=== PATIENT | female | born 1965 | race Caucasian/White ===

== ENCOUNTER → 2016-07-22 | Outpatient (CLI) | payer BC ==
[~2016-07-22] MED LIST: ERGO500014 PO; IBUP-1542 PO; LINA145C PO; LORA10TA3 PO; LOSA100T7 PO; MELO-109 PO
[2016-07-22 15:13] LABS: BASOPHILS % 0.5 % (0.0-2.0); EOSINOPHILS % 0.6 % (0.0-7.0); HEMATOCRIT 38.1 % (37.0-47.0); HEMOGLOBIN 12.5 g/dl (12.0-16.0); LYMPHOCYTES # 2.1 10^3/ul (0.8-2.9); LYMPHOCYTES % 25.4 % (15.0-51.0); MEAN CORPUSCULAR HEMOGLOBIN 29.1 pg (29.0-33.0); MEAN CORPUSCULAR HGB CONC 32.8 g/dl (32.0-37.0); MEAN CORPUSCULAR VOLUME 88.9 fl (82.0-101.0); MEAN PLATELET VOLUME 8.8 fl (7.4-10.4); MONOCYTE # 0.6 10^3/ul (0.3-0.9); MONOCYTES % 7.1 % (0.0-11.0); NEUTROPHIL # 5.4 10^3/ul (1.6-7.5); NEUTROPHILS % 66.4 % (39.0-77.0); PLATELET COUNT 274 10^3/UL (140-440); RED BLOOD COUNT 4.28 10^6/ul (4.20-5.40); RED CELL DISTRIBUTION WIDTH 13.8 % (11.5-14.5); UNCORRECTED WBC 8.2 10^3/ul (4.8-10.8); WHITE BLOOD COUNT 8.2 10^3/ul (4.8-10.8)
[2016-07-22 15:17] LABS: ALBUMIN 4.3 g/dl (3.3-4.9); POTASSIUM 4.4 mmol/L (3.5-5.1)
[2016-07-22 15:19] LABS: CREATININE 0.68 mg/dl (0.44-1.00)
[2016-07-22 15:20] LABS: ALBUMIN/GLOBULIN RATIO 1.38; BILIRUBIN,INDIRECT 0.6 mg/dl (0-1.1); BILIRUBIN,TOTAL 0.6 mg/dl (0.2-1.3); TOTAL PROTEIN 7.4 g/dl (6.1-8.1)
[2016-07-22 15:21] LABS: CHOL/HDL RATIO 3.8 RATIO
[2016-07-22 15:22] LABS: CONDITION 1
[2016-07-22 17:23] LABS: ADD UMIC YES; URINE BILIRUBIN (Dip) NEGATIVE (NEGATIVE); URINE BLOOD (Dip) TRACE (NEGATIVE); URINE COLOR YELLOW (YELLOW); URINE GLUCOSE (Dip) NEGATIVE (NEGATIVE); URINE KETONES (Dip) NEGATIVE (NEGATIVE); URINE LEUKOCYTE ESTERASE (Dip) NEGATIVE (NEGATIVE); URINE NITRITE (Dip) NEGATIVE (NEGATIVE); URINE TOTAL PROTEIN (Dip) NEGATIVE (NEGATIVE); URINE UROBILINOGEN (Dip) 0.2 E.U./dL (0.1-1.0)
[2016-07-22 18:18] LABS: SQUAMOUS EPITHELIAL CELL,UR RARE
== END | disposition home or self-care (01) ==
LOC: LAB 14:33
PROVIDERS: ATTEND Internal Medicine
DX: E78.5 Hyperlipidemia, unspecified (principal); N39.0 Urinary tract infection, site not specified
CPT/HCPCS: 80053; 80061; 81001; 81003; 85025; 87086

== ENCOUNTER → 2016-08-03 | Outpatient (CLI) | payer BC ==
[~2016-08-03] MED LIST changes: +IOHEXOL 300MG/ML 150 ML BTL ONE; +SOD CHLORIDE 0.9% 100 ML ONE
--- NOTE | 2016-08-03 10:12 | RADRPT ---
PROCEDURE: CT urogram abdomen and pelvis. CLINICAL INDICATION: Hematuria TECHNIQUE: CT urogram was performed on a multi-slice CT scanner with contiguous high-resolution thin-slice 3.8 mm overlapping pre-contrast axial images obtained through the kidneys, ureters and bladder. Addition al high-resolution thin-slice post-contrast images through the kidneys were performed. Delete the Ad ditional high resolution thin slice delay images were obtained through the kidneys, ureters, and alexandra dder. Coronal and sagittal reconstructions of all sequences were obtained. DLP 2201.6 mGycm. CTDIvol 15.3, 15.1, and 15.4 mGy COMPARISON: 03/27/2015 FINDINGS: There are no renal or ureteral calculi present bilaterally. There is no evidence of hydronephrosis o r perinephric stranding. There is no enhancing renal mass. Delayed images demonstrate no filling def ects in the renal collecting systems, ureters, and bladder. The lung bases are clear. There is normal density of the liver with no enhancing lesion or biliary d uctal dilatation. A nonenhancing cyst is seen in the left hepatic lobe. The gallbladder is unremark able without inflammation and the portal vein is intact. The spleen is unremarkable without enlargement. The adrenal glands are within normal limits bilater ally without focal lesion or inflammation. The pancreas is unremarkable with no evidence of focal le rossy or inflammation. There is mild fluid distension of portions of the small bowel with fluid and stool distension of the colon without obstruction. The appendix is not seen. There is mild wall thickening of the rectum with adjacent fat stranding that is indeterminate. There is no free air. There is trace free fluid . There are no enlarged lymph nodes by CT measurement criteria. Aortic atherosclerosis is present. Multilevel degenerative changes are seen throughout the lumbar spine with no acute osseous abnormal ity. There are surgical changes of prior ventral hernia repair. The uterus and adnexal structures are grossly unremarkable. IMPRESSION: Normal appearance of the kidneys, ureters, and bladder. Atherosclerotic disease. Air and fluid distension of the small bowel with fluid and stool distension of the colon is present that could represent an ileus. Mild possible inflammatory changes of the distal colon are present t hat could represent an area of colitis. RPTAT: AA .Jacob Morton MD, MD Date Time Electronically viewed and signed by .Jacob Morton MD, MD on 08/03/2016 10:11 .J/
== END | disposition home or self-care (01) ==
LOC: C/S 08:34
PROVIDERS: ATTEND Internal Medicine
DX: N20.0 Calculus of kidney (principal); R31.9 Hematuria, unspecified
CPT/HCPCS: 74178; Q9967

== ENCOUNTER → 2017-02-17 | Outpatient (CLI) | payer BC ==
[~2017-02-17] MED LIST changes: +CEPH500C PO; +IBUP800T25 PO; -IOHEXOL 300MG/ML 150 ML BTL ONE; +MECL25TA2; +OPTI5OP6 RIGHT EYE; +ROSU5TAB5 PO; +SENN-53 PO; +SENN-59; -SOD CHLORIDE 0.9% 100 ML ONE
[2017-02-17 16:28] LABS: BASOPHILS % 0.6 % (0.0-2.0); EOSINOPHILS # 0.1 10^3/ul (0.0-0.5); EOSINOPHILS % 0.8 % (0.0-7.0); HEMATOCRIT 37.9 % (37.0-47.0); HEMOGLOBIN 12.4 g/dl (12.0-16.0); LYMPHOCYTES # 2.1 10^3/ul (0.8-2.9); LYMPHOCYTES % 31.2 % (15.0-51.0); MEAN CORPUSCULAR HGB CONC 32.7 g/dl (32.0-37.0); MEAN CORPUSCULAR VOLUME 91.5 fl (82.0-101.0); MEAN PLATELET VOLUME 11.1 fl (7.4-10.4); MONOCYTE # 0.6 10^3/ul (0.3-0.9); MONOCYTES % 8.4 % (0.0-11.0); NEUTROPHILS % 58.8 % (39.0-77.0); PLATELET COUNT 282 10^3/UL (140-415); RED BLOOD COUNT 4.14 10^6/ul (4.20-5.40); RED CELL DISTRIBUTION WIDTH 13.2 % (11.5-14.5); WHITE BLOOD COUNT 6.6 10^3/ul (4.8-10.8)
[2017-02-17 16:50] LABS: BILIRUBIN,INDIRECT 0.3 mg/dl (0-1.1); BILIRUBIN,TOTAL 0.3 mg/dl (0.2-1.3); CALCIUM 9.3 mg/dl (8.4-10.2); CREATININE 0.65 mg/dl (0.44-1.00)
[2017-02-17 17:20] LABS: THYROID STIMULATING HORMONE 1.92 MIU/L (0.465-4.680)
[2017-02-17 17:27] LABS: ALBUMIN/GLOBULIN RATIO 1.57
[2017-02-17 17:29] LABS: ALBUMIN 4.4 g/dl (3.3-4.9); TOTAL PROTEIN 7.2 g/dl (6.1-8.1)
== END | disposition home or self-care (01) ==
LOC: LAB 12:12
PROVIDERS: ATTEND Internal Medicine
DX: E78.5 Hyperlipidemia, unspecified (principal); E03.9 Hypothyroidism, unspecified
CPT/HCPCS: 80053; 80061; 84436; 84443; 85025

== ENCOUNTER → 2017-07-28 | Outpatient (CLI) | END | disposition home or self-care (01) ==

== ENCOUNTER 2017-08-04 11:49 | Emergency (ER) | END 2017-08-04 14:57 | disposition home or self-care (01) ==

== ENCOUNTER → 2017-09-07 | Outpatient (CLI) | END | disposition home or self-care (01) ==

== ENCOUNTER → 2018-03-16 | Outpatient (CLI) | END | disposition home or self-care (01) ==

== ENCOUNTER 2018-08-16 08:47 | Emergency (ER) | payer BC ==
[~2018-08-16] VITALS: Ht 162.6 cm; Wt 72.7 kg
[~2018-08-16 08:47] MED LIST changes: +ACET325T33 PO; -CEPH500C PO; -IBUP800T25 PO; +LOSA100T15 PO; -LOSA100T7 PO; -MECL25TA2; -MELO-109 PO; +MELO7.5T38 PO; -OPTI5OP6 RIGHT EYE; +OSEL75CA23 PO; +PROM5SYR2 PO; -ROSU5TAB5 PO; -SENN-53 PO; -SENN-59
[2018-08-16 08:51] VITALS: Ht 162.6 cm; Wt 72.7 kg
[2018-08-16] MEDS ORDERED: KETOROLAC 30 MG INJ IM STA (08:52)
--- NOTE | 2018-08-16 09:30 | ERD ---
ER Documentation Chief Complaint Chief Complaint pressure like chest pain since last night, non radiating HPI 52-year-old generally healthy woman presents with 2 days of sharp constant substernal chest pain that began yesterday. The pain is nonexertional nonradiating and she has had a similar episode in the past which resolved spo ntaneously. She denies cough, no fevers or chills, no calf or leg swelling. ROS All systems reviewed and are negative except as per history of present illness. Medications Home Meds Active Scripts Naproxen* (Naprosyn*) 500 Mg Tablet, 500 MG PO BID PRN for PAIN AND/OR INFLAMMATION, #30 TAB Prov:OSWALDO ARENAS MD 08/16/18 Loratadine* (Loratadine*) 10 Mg Tablet, 10 MG PO DAILY, #20 TAB Prov:JENNIFER RUIZ DO 09/21/15 Reported Medications Ergocalciferol* (Drisdol* (Vitamin D2)) 50,000 Unit Capsule, [address] UNIT PO WEDNESDAY, CAP 03/10/16 Losartan Potassium* (Losartan Potassium*) 100 Mg Tablet, 100 MG PO DAILY PRN for ELEVATED BLOOD PRESSURE, TAB 03/10/16 Linaclotide (LINZESS) 145 Mcg Capsule, 145 MCG PO DAILY 05/09/14 Discontinued Reported Medications Meloxicam* (Meloxicam*) 7.5 Mg Tablet, 7.5 MG PO DAILY PRN for MODERATE PAIN LEVEL 4-6, #30 TAB 08/29/15 Discontinued Scripts Promethazine HCl/Codeine (Prometh-Codein 6.25-10 mg/5 ml) 5 Ml Syrup, 10 ML PO Q6, #120 Prov:ÁSNCHEZ SHANNON MD 08/04/17 Acetaminophen* (Tylenol*) 325 Mg Tablet, 2 TAB PO Q4H WHILE AWAKE PRN for PAIN AND OR ELEVATED TEMP, #20 TAB Prov:SÁNCHEZ SHANNON MD 08/04/17 Ibuprofen* (Motrin*) 600 Mg Tab, 600 MG PO Q6H PRN for PAIN AND OR ELEVATED TEMP, #30 TAB Prov:SÁNCHEZ SHANNON MD 08/04/17 Oseltamivir Phosphate* (Tamiflu*) 75 Mg Capsule, 75 MG PO BID for 5 Days, CAP Prov:SÁNCHEZ SHANNON MD 08/04/17 Ibuprofen* (Ibuprofen*) 600 Mg Tablet, 600 MG PO Q8 for PAIN, #30 TAB Prov:OSWALDO ARENAS MD 03/10/16 Allergies Allergies: Coded Allergies: No Known Drug Allergies (Verified Allergy, Mild, 08/16/18) PMhx/Soc Hypertension History of Surgery: Yes (hernia repair) Anesthesia Reaction: No Hx Neurological Disorder: No Hx Respiratory Disorders: No Hx Cardiac Disorders: Yes (HTN) Hx Psychiatric Problems: No Hx Miscellaneous Medical Probl: No (CONSTIPATION) Hx Alcohol Use: No Hx Substance Use: No Hx Tobacco Use: No Physical Exam Vitals Vital Signs Date Temp Pulse Resp B/P (MAP) Pulse Ox O2 O2 Flow FiO2 Time Delivery Rate 08/16/18 98.2 73 19 110/76 100 Room Air 10:47 (87) 08/16/18 97.8 71 18 134/75 100 08:51 (94) Physical Exam Const: No acute distress, afebrile Head: Atraumatic Eyes: Normal Conjunctiva ENT: Normal External Ears, Nose and Mouth. Neck: Full range of motion. No meningismus. Resp: Clear to auscultation bilaterally Cardio: Regular rate and rhythm, no murmurs Abd: Soft, non tender, non distended. Normal bowel sounds Skin: No petechiae or rashes Back: No midline or flank tenderness Ext: No cyanosis, or edema Neur: Awake and alert x3, no focal deficits or facial asymmetry Psych: Normal Mood and Affect Result Diagram: 08/16/1890008/16/18900 Results 24 hrs Laboratory Tests Test 08/16/18 09:01 White Blood Count 5.6 10^3/ul Red Blood Count 4.14 10^6/ul Hemoglobin 12.1 g/dl Hematocrit 38.4 % Mean Corpuscular Volume 92.8 fl Mean Corpuscular Hemoglobin 29.2 pg Mean Corpuscular Hemoglobin Concent 31.5 g/dl Red Cell Distribution Width 13.1 % Platelet Count 247 10^3/UL Mean Platelet Volume 10.2 fl Immature Granulocytes % 0.200 % Neutrophils % 61.0 % Lymphocytes % 28.4 % Monocytes % 9.2 % Eosinophils % 0.7 % Basophils % 0.5 % Nucleated Red Blood Cells % 0.0 /100WBC Immature Granulocytes # 0.010 10^3/ul Neutrophils # 3.4 10^3/ul Lymphocytes # 1.6 10^3/ul Monocytes # 0.5 10^3/ul Eosinophils # 0.0 10^3/ul Basophils # 0.0 10^3/ul Nucleated Red Blood Cells # 0.0 10^3/ul Sodium Level 142 mmol/L Potassium Level 4.0 mmol/L Chloride Level 100 mmol/L Carbon Dioxide Level 29 mmol/L Anion Gap 13 Blood Urea Nitrogen 17 mg/dl Creatinine 0.62 mg/dl Est Glomerular Filtrat Rate mL/min > 60 mL/min Glucose Level 112 mg/dl Calcium Level 9.2 mg/dl Total Bilirubin 0.5 mg/dl Direct Bilirubin 0.00 mg/dl Indirect Bilirubin 0.5 mg/dl Aspartate Amino Transf (AST/SGOT) 22 IU/L Alanine Aminotransferase (ALT/SGPT) 33 IU/L Alkaline Phosphatase 53 IU/L Troponin I < 0.012 ng/ml Total Protein 7.3 g/dl Albumin 4.3 g/dl Globulin 3.00 g/dl Albumin/Globulin Ratio 1.43 Lipase 161 U/L Current Medications Medications Dose Sig/Nelson Start Time Status Last (Trade) Ordered Route PRN Stop Time Admin Dose Reason Admin Ketorolac 30 mg ONCE STAT 08/16/18 DC 08/16/18 Tromethamine IM 08:52 09:07 (Toradol) 08/16/18 08:53 Procedures/MDM IV line was established patient was placed on svp of digital rhythm strip revealed a sinus rhythm at about 70 bpm with upright P and T waves. Patient was afebrile Chest X-ray 1V Interpreted by me: Soft Tissue: No acute abnormalities Bones: No acute abnormalities Mediastinum/Cardiac Silhouette/Lungs: No acute abnormalities EKG performed, read by me: 67 bpm, normal sinus rhythm, normal axis, no acute ST segment changes, narrow QRS complex, with good R-wave progression in precordial leads. I administered Toradol 30 mg IM x1 for pain control. CBC and electrolytes are normal, liver function tests were normal, troponin was negative Differential diagnoses considered, included but not limited to acute coronary syndrome, pulmonary embolism, aortic dissection, abdominal aortic aneurysm, sepsis, stroke, meningitis, encephalitis, pneumonia, appendicitis, cholecyst itis, bowel obstruction, pyelonephritis, nephrolithiasis, cystitis, as well as metabolic, hematologic, and electrolyte abnormalities. As well as abscess, cellulitis, fractures, and dislocations. Patient feels much better at this time, and vital signs are normal, symptoms have improved. I did give strict instructions to return to the ED if symptoms continue or worsen, patient will otherwise follow-up with primary care physician. Patient understood instructions and agreed to plan. Disclaimer: Inadvertent spelling and grammatical errors are likely due to EHR/dictation software use and do not reflect on the overall quality of patient care. Also, please note that the electronic time recorded on this note does not necessarily reflect the actual time of the patient encounter. Departure Diagnosis: Primary Impression: Chest pain Chest pain type: unspecified Qualified Codes: R07.9 - Chest pain, unspecified Condition: OSWALDO Rivas MD Aug 16, 2018 09:30
[2018-08-16] MEDS ORDERED: NAPR-985 PO (10:10)
[2018-08-16 10:47] VITALS: BP 110/76; PULSE 73; RESP 19
== END 2018-08-16 10:48 | disposition home or self-care (01) ==
LOC: E/R 08:47
DX: R07.9 Chest pain, unspecified (principal); I10 Essential (primary) hypertension
CPT/HCPCS: 36415; 71045; 80053; 83690; 84484; 85025; 93005; 96372; 99285; J1885

== ENCOUNTER → 2018-10-25 | Outpatient (CLI) | payer BC ==
[~2018-10-25] MED LIST changes: -ACET325T33 PO; -IBUP-1542 PO; -MELO7.5T38 PO; +NAPR-985 PO; -OSEL75CA23 PO; -PROM5SYR2 PO
== END | disposition home or self-care (01) ==
LOC: LAB 11:26
PROVIDERS: ATTEND Internal Medicine
DX: R73.03 Prediabetes (principal); E78.5 Hyperlipidemia, unspecified; E03.9 Hypothyroidism, unspecified
CPT/HCPCS: 80053; 80061; 81003; 83036; 84436; 84443; 85025

== ENCOUNTER → 2018-12-15 | Outpatient (CLI) | payer BC | END | disposition home or self-care (01) | LOC: LAB 09:06 | PROVIDERS: ATTEND Internal Medicine | DX: N39.0 Urinary tract infection, site not specified (principal); R73.03 Prediabetes; E78.5 Hyperlipidemia, unspecified | CPT/HCPCS: 80053; 80061; 81001; 83036; 84436; 84443; 85025; 87086 ==

== ENCOUNTER → 2019-01-12 | Outpatient (CLI) | payer BC | END | disposition home or self-care (01) | LOC: LAB 08:48 | PROVIDERS: ATTEND Internal Medicine | DX: N39.0 Urinary tract infection, site not specified (principal); S62.102A Fracture of unspecified carpal bone, left wrist, initial encounter for closed fracture; X58.XXXA Exposure to other specified factors, initial encounter | CPT/HCPCS: 81003; 87086 ==